=== PATIENT | male | born 1950 | race Caucasian/White ===

== ENCOUNTER 2018-02-03 05:05 | Emergency (ER) | payer MEDICARE ==
[~2018-02-03] VITALS: Ht 182.9 cm; Wt 128.5 kg
[~2018-02-03 05:05] MED LIST: ACET-1015 PO; ATOR20TA PO; CARSR60C PO; FLO0.4C PO; GLUC100017 PO; LOSA25TA96 PO; METF-516 PO; OMEG1CAP2 PO; OMEP20TA5 PO
[2018-02-03] MEDS ORDERED: COU3T PO (05:50)
[2018-02-03] MEDS ORDERED: COU4T PO (05:50)
[2018-02-03] MEDS ORDERED: oxymetazoline 15 ML nasal spray NS ONE (06:10)
[2018-02-03 07:21] VITALS: BP 147/98
== END 2018-02-03 07:23 | disposition home or self-care (01) ==
LOC: ER 05:06
DX: R04.0 Epistaxis (principal); I48.91 Unspecified atrial fibrillation; I10 Essential (primary) hypertension; G89.29 Other chronic pain; Z96.642 Presence of left artificial hip joint; Z79.01 Long term (current) use of anticoagulants; Z79.899 Other long term (current) drug therapy
CPT/HCPCS: 99283

== ENCOUNTER 2018-02-06 05:19 | Emergency (ER) | payer MEDICARE ==
[~2018-02-06] VITALS: Ht 154.9 cm; Wt 134.5 kg
[~2018-02-06 05:19] MED LIST changes: +COU3T PO; +COU4T PO
[2018-02-06] MEDS ORDERED: cloNIDine 0.1 mg tablet PO ONE (06:15)
[2018-02-06 06:56] LABS: INR 2.4 INR; PROTHROMBIN TIME 23.8 SECONDS (9.0-12.0)
[2018-02-06] MEDS ORDERED: oxymetazoline 15 ML nasal spray NS ONE (07:10)
[2018-02-06] MEDS ORDERED: hyDRALAzine 10mg tablet PO ONE (07:55)
[2018-02-06] MEDS ORDERED: hyDRALAzine 10mg tablet PO SCH (07:55)
[2018-02-06 09:04] VITALS: BP 177/94
== END 2018-02-06 09:06 | disposition home or self-care (01) ==
LOC: ER 05:20
DX: R04.0 Epistaxis (principal); I48.91 Unspecified atrial fibrillation; I10 Essential (primary) hypertension; G89.29 Other chronic pain; Z79.899 Other long term (current) drug therapy; Z98.890 Other specified postprocedural states
CPT/HCPCS: 36415; 85610; 99283